=== PATIENT | female | born 1970 | race Caucasian/White ===

== ENCOUNTER 2016-10-21 18:35 | Inpatient (IN) | payer OTHER ==
[~2016-10-21] VITALS: Ht 172.7 cm; Wt 75.3 kg
--- NOTE | 2016-10-21 18:51 | NUR ---
PT C/O CHEST PAIN FOR 2 DAYS PRESUURE LIKE PAIN INTERMITTENTLY NON RADATING AND NONPROVOKED. PT ALSO S/O DIZZINESS YESTERDAY. PAIN 7/10 AT THIS TIME. ALSO C/O SOB. PT ARRIVES AND IS ALERT AND ORIENTED WITH STABLE VITALS AND 0 S/S DISTRESS NOTED. DR PATEL AT BEDSIDE FOR EVAL. UPON ASSESSMENT PATIENT IS NSR AND LUNGS ARE CLEAR ALL LOBES. EKG PERFORMED IN TRIAGE
--- NOTE | 2016-10-21 19:14 | NUR ---
RECEIVED REPORT FROM [facility] TO ASSUME CARE OF PT.
[2016-10-21 19:38] LABS: AMPHETAMINE QUAL UR NONE DETECTED (NEG <=1000)
[2016-10-21 19:50] LABS: CALCIUM 8.5 mg/dL (8.5-10.1); CHLORIDE SERUM 107 mmol/L (98-107); CREATININE SERUM 0.7 mg/dL (0.6-1.0); GFR1 > 60 mL/min; GLUCOSE SERUM 107 mg/dL (74-106); POTASSIUM SERUM 4.2 mmol/L (3.5-5.1); SODIUM SERUM 143 mmol/L (136-145)
[2016-10-21 19:51] LABS: BASOPHIL % 0.4 % (0-2); PLATELET COUNT 272 x10^3mcL (130-400); RED CELL DISTRIBUTION WIDTH 14.4 % (11.5-14.5)
[2016-10-21 19:54] LABS: ALKALINE PHOSPHATASE 84 U/L (46-116); ALT/SGPT 16 U/L (14-59); AST/SGOT 16 U/L (15-37); BILIRUBIN TOTAL 0.2 mg/dL (0.20-1.00); TOTAL PROTEIN, SERUM 7.6 g/dL (6.4-8.2)
[2016-10-21 19:55] LABS: ALBUMIN 3.3 g/dL (3.4-5.0)
--- NOTE | 2016-10-21 20:45 | NUR ---
PT LAYING DOWN WITH BED IN LOWEST POSTION AND DAUGHTER AT BEDSIDE. PT DENIES ANY PAIN AT THIS CURRENT TIME AND STATES THAT HER PAIN WAS RELIEVED BY THE MEDICATION. PT STABLE. NAD. CALL YSABEL REICH. [facility] ONT[facility] TO ESTEFANY.
--- NOTE | 2016-10-21 22:00 | NUR ---
PT LAYING SUPINE IN POC WITH BED IN LOWEST POSITION. DAUGHTER STILL AT BEDSIDE. PT STABLE. RESP E/U. PT DENIES ANY PAIN. NAD. CALL LIGHT WIHIN REACH. WILL CONTINUE TO MONITOR.
--- NOTE | 2016-10-21 23:35 | NUR ---
RESIDENT AT BEDSIDE SPEAKING WITH PT AND FAMILY.
[2016-10-22] VITALS (7 sets, daily range): BP systolic 94–130; BP diastolic 52–73; Ht 172.7 cm; Wt 75.3 kg
--- NOTE | 2016-10-22 00:13 | NUR ---
CALLED REPROT TO [facility]IE WOLFF TO ASSUME CAR EOF PT.
--- NOTE | 2016-10-22 00:41 | NUR ---
RECEIVED PT LYING IN BED, NEW ADMIT, RECEIVED FROM ED BY PRIMARY NURSE HARI. CAME IN DUE TO SOB AND CHEST PAIN X2 DAYS. AAOX4. DENIES HEADACHE/DIZZINESS. NO SOB NOTED, O2 FVE=550%,RA. C/O 4/10 RIGHT SIDED CHEST PAIN DESCRIBED PRESSURE AND NON-RADIATING. DENIES ABDOMINAL DISCOMFORT. SON AT BEDSIDE. SIDE RAILS UPX2. CALL LIGHT ON REACH. ENDORSED TO PRIMARY NURSE FOR CONTINUITY OF CARE
--- NOTE | 2016-10-22 00:52 | NUR ---
RECEIVED PT FROM [facility]. PT AOX4. TELE #9, HR 83. PULSES GOOD, NO EDEMA NOTED. LUNG SOUNDS CLEAR, ON RA. DENIES SOB/ DIFFICULTY BREATHING. BOWEL SOUNDS ACTIVE. VOIDS FREELY. AMBULATORY WITHOUT ASSISTANCE. SKIN INTACT. IV IN RAC, INTACT AND PATENT. BED IN LOWEST POSITION. CALL LIGHT WITHIN REACH. WILL CONTINUE TO MONITOR.
[2016-10-22 01:30] LABS: CHOLESTEROL/HDL RATIO 3.5
[2016-10-22 02:19] LABS: microscopic required? NO
[2016-10-22 02:23] LABS: T3 TOTAL 0.85 ng/mL
[2016-10-22 02:24] LABS: UA SPECIFIC GRAVITY <=1.005 (1.005-1.035); urine erythrocyte NEGATIVE (NEGATIVE)
--- NOTE | 2016-10-22 03:05 | NUR ---
PT RESTING IN BED. RR EVEN AND UNLABORED. NO ACUTE DISTRESS NOTED. BED IN LOWEST POSITION. CALL LIGHT WITHIN REACH. WILL CONTINUE TO MONITOR.
[2016-10-22 05:51] LABS: FREE T4 1.19 ng/dL (0.76-1.46); FREE THYROXINE INDEX 2.6 ug/dL (1.4-4.5); T4(THYROXINE) 7.7 ug/dL (4.7-13.3)
--- NOTE | 2016-10-22 06:09 | NUR ---
PT COMPLAINING OF CP, PAIN MEDS AND OXYGEN OFFERED, PT REFUSED. VITAL SIGNS STABLE. NSR ON TELE. WILL CONTINUE TO MONITOR.
[2016-10-22 06:48] LABS: CALCIUM 8.4 mg/dL (8.5-10.1); CHLORIDE SERUM 109 mmol/L (98-107); CREATININE SERUM 0.7 mg/dL (0.6-1.0); GFR1 > 60 mL/min; GLUCOSE SERUM 87 mg/dL (74-106); MAGNESIUM 2.1 mg/dL (1.8-2.4); PHOSPHOROUS 3.8 mg/dL (2.5-4.9); POTASSIUM SERUM 4.4 mmol/L (3.5-5.1); SODIUM SERUM 143 mmol/L (136-145)
--- NOTE | 2016-10-22 07:40 | NUR ---
RECEIVED PT IN BED. PT C/O CP WHEN MOVING TO BATHROOM. NOW RELIEVED WITH REST. NO ACUTE DISTRESS NOTED. RESP EVEN AND UNLABORED. IVF INFUSING. PT'S SON IS AT BEDSIDE. BED IN LOWEST POSITION. CALL LIGHT WITHIN REACH. WILL CONTINUE TO MONITOR.
[2016-10-22 08:54] LABS: BASOPHIL % 0.4 % (0-2); PLATELET COUNT 246 x10^3mcL (130-400)
[2016-10-22 08:55] LABS: RED CELL DISTRIBUTION WIDTH 14.6 % (11.5-14.5)
--- NOTE | 2016-10-22 13:55 | NUR ---
PT RESTING IN BED. NO ACUTE DISTRESS. DENIES CP OR PRESSURE AT THIS TIME. IVF INFUSING. BED IN LOWEST POSITION, CALL LIGHT WITHIN REACH. WILL CONTINUE TO MONITOR.
--- NOTE | 2016-10-22 18:34 | NUR ---
PT RESTING COMFORTABLY IN BED. NO ACUTE DISTRESS NOTED. PT C/O DISCOMFORT WHEN MOVING. DISCOMFORT RELIEVED WITH REST. DENIES PAIN AT THIS TIME. IVF INFUSING. FAMILY AT BEDSIDE. BED IN LOWEST POSITION. CALL LIGHT WITHIN REACH. WILL ENDORSE TO ONCOMING SHIFT.
--- NOTE | 2016-10-22 20:16 | NUR ---
RECEIVED PT IN BED AAOX4 , CITIZEN [place] SPEAKING ONLY , PT DENY CHEST PAIN AT THE MOMENT , ON TELE NUMBER 9 THAT SHOWS NSR , HR 72, LUNG SOUNDS CTA , ABD SOFT BS ACTIVE X4, PIV INTACT INFUSING WELL . WILL CON'T TO MONITOR PT.
[2016-10-23 05:36] VITALS: BP 98/52
--- NOTE | 2016-10-23 06:25 | NUR ---
NO CHHNAGES OF CONDITION NOTED, ALL DUE MEDS GIVEN NO REACTION NOTED , PIC INTACT INFUSING WELL , TELE NSR .
[2016-10-23 06:40] LABS: BASOPHIL % 0.5 % (0-2); PLATELET COUNT 259 x10^3mcL (130-400)
[2016-10-23 06:47] LABS: CALCIUM 8.3 mg/dL (8.5-10.1); CARBON DIOXIDE 26.5 mmol/L (21-32); CHLORIDE SERUM 105 mmol/L (98-107); CREATININE SERUM 0.7 mg/dL (0.6-1.0); GFR1 > 60 mL/min; GLUCOSE SERUM 98 mg/dL (74-106); MAGNESIUM 2.1 mg/dL (1.8-2.4); PHOSPHOROUS 3.9 mg/dL (2.5-4.9); POTASSIUM SERUM 4.1 mmol/L (3.5-5.1); SODIUM SERUM 147 mmol/L (136-145)
[2016-10-23 06:50] LABS: RED CELL DISTRIBUTION WIDTH 14.7 % (11.5-14.5)
--- NOTE | 2016-10-23 07:24 | NUR ---
PT RESTING IN BED WATCHING TV. NO ACUTE DISTRESS. DENIES CP OR PRESSURE AT THIS TIME. IVF INFUSING. FAMILY AT BEDSIDE. BED IN LOWEST POSITION, CALL LIGHT WITHIN REACH. WILL CONTINUE TO MONITOR.
[2016-10-23] MEDS ORDERED: GOOD SENSE OMEP20 MG PO (08:18)
[2016-10-23] MEDS ORDERED: NAPROXEN375 MG PO (08:22)
[2016-10-23 09:22] VITALS: BP 111/66
[2016-10-23 10:35] VITALS: BP 111/66
--- NOTE | 2016-10-23 11:12 | NUR ---
PT DISCHARGED TO HOME IN NO ACUTE DISTRESS. AWAKE, ALERT, AND ORIENTED. VSS. AMBULATORY. DISCHARGE EDUCATION PROVIDED, PT VERBALIZED UNDERSTANDING. INSTRUCTED PT TO FOLLOW UP WITH PCP. IV DC'D INTACT. TELE REMOVED. BELONGINGS WITH PT. TERESA GONZALEZ ACCOMPANIED PT TO LOBBY.
== END 2016-10-23 11:12 | disposition home or self-care (01) | DRG 205 ==
LOC: ED 18:35 → EDBD 18:35 → DU 23:37
PROVIDERS: Emergency Medicine; Family Medicine; ADMIT Family Medicine
DX: M94.0 Chondrocostal junction syndrome [Tietze] (principal); N17.0 Acute kidney failure with tubular necrosis; Z68.27 Body mass index [BMI] 27.0-27.9, adult
CPT/HCPCS: 80307; 83880; 84439; 85378; C9113; J1885; J7030; Q0092; Q9967

== ENCOUNTER 2017-05-12 12:56 | Emergency (ER) | payer OTHER ==
[~2017-05-12] VITALS: Ht 162.6 cm; Wt 77.3 kg
[~2017-05-12 12:56] MED LIST: GOOD SENSE OMEP20 MG PO; NAPROXEN375 MG PO
[2017-05-12 14:13] LABS: BASOPHIL % 0.2 % (0-2); PLATELET COUNT 297 x10^3mcL (130-400)
[2017-05-12 14:14] LABS: RED CELL DISTRIBUTION WIDTH 15.6 % (11.5-14.5)
[2017-05-12 14:39] LABS: CALCIUM 9.5 mg/dL (8.5-10.1); CARBON DIOXIDE 28.8 mmol/L (21-32); CHLORIDE SERUM 104 mmol/L (98-107); CREATININE SERUM 0.8 mg/dL (0.6-1.0); GFR1 > 60 mL/min; GLUCOSE SERUM 89 mg/dL (74-106); POTASSIUM SERUM 4.5 mmol/L (3.5-5.1); SODIUM SERUM 140 mmol/L (136-145)
[2017-05-12 14:56] VITALS: BP 122/83
== END 2017-05-12 14:56 | disposition home or self-care (01) ==
LOC: ED 12:56
PROVIDERS: Emergency Medicine
DX: B34.9 Viral infection, unspecified (principal)
CPT/HCPCS: 36415

== ENCOUNTER 2018-01-20 15:18 | Emergency (ER) | payer BC ==
[~2018-01-20] VITALS: Ht 162.6 cm; Wt 74.8 kg
[2018-01-20 15:35] VITALS: Ht 162.6 cm; Wt 74.8 kg
[2018-01-20 16:15] LABS: BASOPHIL % 0.3 % (0-2); PLATELET COUNT 352 x10^3mcL (130-400); RED CELL DISTRIBUTION WIDTH 14.3 % (11.5-14.5)
[2018-01-20 16:35] LABS: CARBON DIOXIDE 25.3 mmol/L (21-32); CHLORIDE SERUM 105 mmol/L (98-107); CREATININE SERUM 0.8 mg/dL (0.6-1.0); GFR1 > 60 mL/min; GLUCOSE SERUM 90 mg/dL (74-106); SODIUM SERUM 140 mmol/L (136-145)
[2018-01-20 16:40] LABS: ALKALINE PHOSPHATASE 73 U/L (46-116); ALT/SGPT 14 U/L (14-59); AST/SGOT 13 U/L (15-37); BILIRUBIN TOTAL 0.2 mg/dL (0.20-1.00); LIPASE 164 IU/L (73-393); TOTAL PROTEIN, SERUM 7.7 g/dL (6.4-8.2)
[2018-01-20 17:47] VITALS: BP 120/64
== END 2018-01-20 17:47 | disposition home or self-care (01) ==
LOC: ED 15:18
PROVIDERS: Emergency Medicine
DX: K62.5 Hemorrhage of anus and rectum (principal); K29.70 Gastritis, unspecified, without bleeding; Z90.710 Acquired absence of both cervix and uterus
CPT/HCPCS: 36415